=== PATIENT | male | born 1995 | race Caucasian/White ===

== ENCOUNTER 2024-07-03 18:03 | Emergency (ER) | payer BC, SELFPAY ==
--- NOTE | 2024-07-03 18:11 | ED.GENADULT ---
HPI - General Adult General Date Seen: 07/03/24 Chief complaint: Flank Pain Stated complaint: right side lower back and side pain Time Seen by Provider: 07/03/24 18:06 History of Present Illness HPI narrative: 29 yo M with a h/o CELESTE, , elevated BMI but otherwise generally healthy presenting to the ER today for pain involving the right side of his low back in the right flank. He has never really had trouble with his low back before no previous operations. Also no history of kidney stones (but his father passed a kidney stone once). He presents to the ER today with right flank pain that began when he woke up Wednesday morning. He has no recent injuries. He does do a lot of manual labor. He works as solidworks mechanical designer. He is also working on putting a new deck on his house. He had not had any heavy labor or all week long, but had been working on his deck last weekend. He started having some fairly mild pain Wednesday located in the right flank sometimes wrapping around to the right lateral abdomen but not really all way to the right upper quadrant. It has been fluctuating through the weekend. No clear pattern. He has been doing a lot of manual labor and digging/drilling holes with an auger for to place footing for his new DAC. He had been managing the pain with Tylenol No. 3, with some improvement with that med. This afternoon when he was were using an auger to drill holes for his footing his, he had a big flare up in pain and had to stop working. The pain is still in his right flank. It does not radiate down to the right hip or buttock or down the leg. The pain does not wrap around to the right upper quadrant or to the right lower quadrant. No pain into the groin or testicle. Urination has been normal. No dysuria, urgency, hematuria. Bowel movements have been normal. No fevers. No cough. No upper chest pain. No shortness of breath. No rash. No recent fall or injury. Related Data Home Medications ?Medication ?Instructions ?Recorded ?Confirmed No Known Home Medications 07/03/24 07/03/24 Allergies Allergy/AdvReac Type Severity Reaction Status Date / Time No Known Drug Allergies Allergy Verified 07/03/24 18:13 PFSH PFSH Social History Smoking Status: Current some day smoker How often do you have a drink containing alcohol: monthly or less AUDIT-C Alcohol total score: 1 Non-prescribed substance use: denies use Exam Narrative: Exam Narrative: Constitutional: Appears well-developed and well-nourished. Alert. Conversant. Non toxic. HENT: Head: Atraumatic. Nose: Nose normal. Mouth/Throat: Oral mucosa is clear and moist. no trismus. Eyes: Conjunctivae normal. EOM normal. Pupils equal, round, and reactive to light. No scleral icterus. Neck: Normal range of motion. Neck supple. No tracheal deviation present. Cardiovascular: Normal rate, regular rhythm. No gallop. No friction rub. No murmur heard. Symmetric radial artery pulses Pulmonary/Chest: Effort normal. No stridor. No respiratory distress. No wheezes. No rales. No rhonchi . No tenderness. Abdominal: Soft. Bowel sounds normal. No distension. No mass. No tenderness. No right upper quadrant tenderness or Medina sign. No HSM No rebound. No guarding. Musculoskeletal: Endorses discomfort in the right upper low back/right flank. No bruising. No rash. No ecchymosis. No erythema. Mild tenderness there. No rib cage tenderness or crepitus. No right upper quadrant tenderness. RUE: Normal range of motion. No tenderness. No deformity LUE: Normal range of motion. No tenderness. No deformity RLE: Normal range of motion. No edema. No tenderness. No deformity LLE: Normal range of motion. No edema. No tenderness. No deformity Lymph: No cervical adenopathy. Neurological: Alert and oriented to person, place, and time. Normal strength. CN II-VII intact. No sensory deficit. GCS eye subscore is 4. GCS verbal subscore is 5. GCS motor subscore is 6. Normal coordination Sensory: Normal light touch sensation bilaterally on the anteromedial thigh (L3), medial malleolus (L4), dorsal first web space (L5), lateral malleolus (S1). Strength: 5/5 strength hip flexors (L3) on the right and left 5/5 strength in the quadriceps (L4) on the right and left 5/5 strength in the tibialis anterior 5/5 strength in the EHL (L5) on the right and left 5/5 strength in the gastrocnemius (S1) on the right and left 5/5 strength in the hamstring on the right and left Negative straight leg raise bilaterally. Skin: Skin is warm and dry. No rash noted. No pallor. Normal capillary refill. Psychiatric: Normal mood. Normal affect. Const: Vital Signs, click to edit/add: Vital Signs - 24 hr 07/03/24 18:13 Temperature 98.8 F Pulse Rate [Pulse Oximeter] 92 Respiratory Rate 16 Blood Pressure [Ri ght Upper Arm] 149/94 H Pulse Oximetry 96 Oxygen Delivery Me thod Room Air Course Vital Signs Vital signs: Initial Vital Signs Temperature 98.8 F 07/03/24 18:13 Temperature Source Temporal Artery Scan 07/03/24 18:13 Pulse Rate 92 07/03/24 18:13 Pulse Rhythm Regular 07/03/24 18:13 Respiratory Rate 16 07/03/24 18:13 Blood Pressure 149/94 H 07/03/24 18:13 Blood Pressure Mean 112 H 07/03/24 18:13 Blood Pressure Position Sitting 07/03/24 18:13 Pulse Oximetry 96 07/03/24 18:13 Oxygen Delivery Method Room Air 07/03/24 18:13 Vital Signs Temperature 98.8 F 07/03/24 18:13 Pulse Rate 92 07/03/24 18:13 Respiratory Rate 16 07/03/24 18:13 Blood Pressure 149/94 H 07/03/24 18:13 Pulse Oximetry 96 07/03/24 18:13 Oxygen Delivery Method Room Air 07/03/24 18:13 Temperature 98.8 F 07/03/24 18:13 Pulse Rate 92 07/03/24 18:13 Respiratory Rate 16 07/03/24 18:13 Blood Pressure 149/94 H 07/03/24 18:13 Pulse Oximetry 96 07/03/24 18:13 Oxygen Delivery Method Room Air 07/03/24 18:13 Medications Administered Medications: Discontinued Medications Generic Name Dose Route Start Last Admin Trade Name Freq PRN Reason Stop Dose Admin Ibuprofen 800 mg 07/03/24 18:33 07/03/24 18:40 Ibuprofen 400 Mg Tablet PO 07/03/24 18:34 800 mg ONCE ONE Administration Medical Decision Making MDM Narrative Medical decision making narrative: This patient presented with right flank/right-sided low back pain. Broad differential considered. He has been doing a lot of mechanical labor in his job as a solidworks mechanical designer and also building a [employer] last weekend and this weekend. With flank pain would also consider renal pathology. Urinalysis is negative for pyuria, bacteria or hematuria to suggest pyelonephritis or kidney stone. Therefore, using shared decision-making, we decided to hold off on CT imaging for now. He is not having any right upper quadrant tenderness or Medina sign to suggest biliary colic. The patient did not sustain any trauma, therefore x-rays are not necessary due to the low likelihood of fracture or subluxation. No red flag symptoms to suggest CT and/or MRI is indicated at this point. The patient has not had a fever, saddle/perineal anesthesia, bilateral foot numbness, or bowel or bladder dysfunction. There is no clinical evidence of cauda equina syndrome, discitis, spinal/epidural space hematoma or epidural abscess. The neurological exam is normal and the patient's symptoms seem consistent with a musculoskeletal issues and significant muscle spasm. Pain has improved with interventions in the emergency department. The patient will be discharged with pain medications to use as directed. Ice or heat to the back and stretching exercises. No heavy lifting, bending or twisting. Return if increasing pain, numbness, weakness, or bowel or bladder dysfunction. The patient was advised to schedule follow-up with their primary doctor within 2-3 days to re-assess symptoms. Return precautions reviewed and questions answered. Lab Data Labs: Lab Results 07/03/24 Range/Units 16:40 Urine Color Yellow (Yellow) Urine Appearance Clear (Clear) Urine pH 6.0 (5.0-8.5) Ur Specific Andreas >= 1.030 (1.000-1.030) Urine Protein Negative (Negative) Urine Glucose (UA) Negative (Negative) Urine Ketones Negative (Negative) Urine Blood Negative (Negative) Urine Nitrite Negative (Negative) Urine Bilirubin Negative (Negative) Urine Urobilinogen 0.2 (0.2-1.0) Ur Leukocyte Esterase Negative (Negative) Urine RBC 0-2 (0-2) Urine WBC 0-2 (0-5) Ur Squamous Epith Cells None (None-Few) Urine Bacteria None (None) Discharge Plan Discharge Clinical Impression: Low back pain, Acute right flank pain Patient Disposition: Home, Self-Care Condition: Stable Instructions: Acute Low Back Pain (ED), Flank Pain (ED) Additional Instructions: As we discussed, we suspect your pain is probably calls by a muscular injury or muscle strain in the right side of her low back. You can use ibuprofen 600 mg per dose 3 times daily as needed for pain. For pain uncontrolled by that you can use muscle relaxers (Flexeril) 3 times daily as needed. You can also use [place] (hydrocodone/acetaminophen) every 6 hours as needed. Use caution with Flexeril and [place] because they both cause drowsiness and dizziness. You should not drive , or operate dangerous machinery while taking these medications. If you are not completely improved within 3-4 days, please recheck with your regular doctor come back to the ER for recheck If you have worsening symptoms such as fever, trouble with urination, abdominal pain, vomiting, please come back to the ER right away to be rechecked. Prescriptions: No Action No Known Home Medications Follow Up/Referrals: Provider,Not a Local [Primary Care Provider] - Stand Alone Forms: [employer] Info Instructions
[2024-07-03 18:13] VITALS: BP 149/94; PULSE 92; RESP 16; TEMP 37.1; O2SAT 96; BMI 50.1
[2024-07-03] MEDS: IBUPROFEN 400 MG TABLET 800 MG PO (18:40)
[2024-07-03 18:48] LABS: Appearance Urine Clear (Clear); Bilirubin Urine Negative (Negative); Blood Urine Negative (Negative); Color Urine Yellow (Yellow); Glucose Urine Negative (Negative); Ketones Urine Negative (Negative); Leukocyte Esterase Urine Negative (Negative); Nitrite Urine Negative (Negative); Protein Urine Negative (Negative); Specific Gravity Urine >= 1.030 (1.000-1.030); Urobilinogen Urine 0.2 (0.2-1.0)
[2024-07-03 18:52] LABS: RBC Urine 0-2 (0-2); WBC Urine 0-2 (0-5)
== END 2024-07-03 20:14 | disposition home or self-care (01) ==
PROVIDERS: Emergency Provider Emergency Medicine
DX: M54.50 Low back pain, unspecified (principal); R10.9 Unspecified abdominal pain
CPT/HCPCS: 81001; 99282; 99283; A9270